=== PATIENT | male | born 1945 | race Caucasian/White ===

== ENCOUNTER 2019-04-04 18:45 | Inpatient (IN) | payer OTHER ==
[~2019-04-04] VITALS: Ht 177.8 cm; Wt 107.8 kg
[~2019-04-04 18:45] MED LIST: FLO4 PO; GLU850 PO; ZOC20 PO; [UNRECOGNIZED DRUG - OTHER] PO
[2019-04-04 18:46] VITALS: Ht 177.8 cm; Wt 107.8 kg
[2019-04-04 19:47] LABS: BASOPHIL % 0.3 % (0-2); PLATELET COUNT 194 x10^3mcL (130-400)
[2019-04-04 19:51] LABS: RED CELL DISTRIBUTION WIDTH 17.2 % (11.5-14.5)
[2019-04-04 19:52] LABS: CALCIUM 8.5 mg/dL (8.5-10.1); CARBON DIOXIDE 27.8 mmol/L (21-32); CHLORIDE SERUM 106 mmol/L (98-107); CREATININE SERUM 1.4 mg/dL (0.7-1.3); GLUCOSE SERUM 113 mg/dL (74-106); POTASSIUM SERUM 4.6 mmol/L (3.5-5.1); SODIUM SERUM 142 mmol/L (136-145)
[2019-04-04 19:57] LABS: ALBUMIN 3.4 g/dL (3.4-5.0); ALKALINE PHOSPHATASE 84 U/L (46-116); ALT/SGPT 31 U/L (16-63); AST/SGOT 18 U/L (15-37); BILIRUBIN TOTAL 0.8 mg/dL (0.20-1.00); TOTAL PROTEIN, SERUM 6.8 g/dL (6.4-8.2)
[2019-04-05] VITALS (7 sets, daily range): BP systolic 122–153; BP diastolic 55–82
[2019-04-06 05:15] VITALS: BP 118/49
[2019-04-06 07:02] LABS: PLATELET COUNT 173 x10^3mcL (130-400)
[2019-04-06 07:12] LABS: BASOPHIL % 0 % (0-2); RED CELL DISTRIBUTION WIDTH 16.8 % (11.5-14.5)
[2019-04-06 07:23] LABS: ALKALINE PHOSPHATASE 60 U/L (46-116); ALT/SGPT 24 U/L (16-63); AST/SGOT 13 U/L (15-37); BILIRUBIN TOTAL 0.5 mg/dL (0.20-1.00); CALCIUM 8.4 mg/dL (8.5-10.1); CARBON DIOXIDE 26.7 mmol/L (21-32); CHLORIDE SERUM 105 mmol/L (98-107); CREATININE SERUM 1.1 mg/dL (0.7-1.3); GLUCOSE SERUM 172 mg/dL (74-106); POTASSIUM SERUM 4.2 mmol/L (3.5-5.1); SODIUM SERUM 139 mmol/L (136-145)
[2019-04-06 08:31] VITALS: BP 117/52
[2019-04-06 12:12] VITALS: BP 117/62
[2019-04-06 16:03] VITALS: BP 146/71
[2019-04-06 20:00] VITALS: BP 111/72
[2019-04-07 05:08] VITALS: BP 114/55
[2019-04-07 07:14] LABS: BASOPHIL % 0 % (0-2); PLATELET COUNT 199 x10^3mcL (130-400); RED CELL DISTRIBUTION WIDTH 17.5 % (11.5-14.5)
[2019-04-07 07:51] LABS: CARBON DIOXIDE 29 mmol/L (21-32); CHLORIDE SERUM 103 mmol/L (98-107); POTASSIUM SERUM 3.8 mmol/L (3.5-5.1); SODIUM SERUM 142 mmol/L (136-145)
[2019-04-07 07:52] LABS: ALBUMIN 3.3 g/dL (3.4-5.0); CREATININE SERUM 1.2 mg/dL (0.7-1.3); GLUCOSE SERUM 189 mg/dL (74-106); TOTAL PROTEIN, SERUM 6.5 g/dL (6.4-8.2)
[2019-04-07 07:53] LABS: ALKALINE PHOSPHATASE 70 U/L (46-116); ALT/SGPT 24 U/L (16-63); AST/SGOT 13 U/L (15-37); BILIRUBIN TOTAL 0.5 mg/dL (0.20-1.00); CALCIUM 8.7 mg/dL (8.5-10.1)
[2019-04-07 08:13] VITALS: BP 147/85
[2019-04-07 12:38] VITALS: BP 142/88
[2019-04-07 16:38] VITALS: BP 128/68
[2019-04-07 21:26] VITALS: BP 112/58
[2019-04-08 06:01] VITALS: BP 123/63
[2019-04-08 07:27] LABS: BILIRUBIN TOTAL 0.5 mg/dL (0.20-1.00); CALCIUM 8.5 mg/dL (8.5-10.1); CARBON DIOXIDE 26.9 mmol/L (21-32); CHLORIDE SERUM 104 mmol/L (98-107); GLUCOSE SERUM 118 mg/dL (74-106); POTASSIUM SERUM 3.6 mmol/L (3.5-5.1); SODIUM SERUM 140 mmol/L (136-145); TOTAL PROTEIN, SERUM 5.9 g/dL (6.4-8.2)
[2019-04-08 07:28] LABS: ALKALINE PHOSPHATASE 56 U/L (46-116); ALT/SGPT 28 U/L (16-63); AST/SGOT 15 U/L (15-37)
[2019-04-08 08:43] VITALS: BP 127/57
[2019-04-08 13:01] VITALS: BP 135/75
[2019-04-08 14:32] VITALS: BP 135/75
[2019-04-08 17:30] VITALS: BP 104/49
[2019-04-08 22:39] VITALS: BP 129/73
[2019-04-09 06:03] VITALS: BP 100/54
[2019-04-09 08:11] LABS: CARBON DIOXIDE 29.2 mmol/L (21-32); CHLORIDE SERUM 105 mmol/L (98-107); CREATININE SERUM 0.9 mg/dL (0.7-1.3); GLUCOSE SERUM 102 mg/dL (74-106); POTASSIUM SERUM 3.8 mmol/L (3.5-5.1); SODIUM SERUM 141 mmol/L (136-145); TOTAL PROTEIN, SERUM 5.7 g/dL (6.4-8.2)
[2019-04-09 08:12] LABS: ALBUMIN 2.9 g/dL (3.4-5.0); ALKALINE PHOSPHATASE 53 U/L (46-116); ALT/SGPT 32 U/L (16-63); AST/SGOT 15 U/L (15-37); BILIRUBIN TOTAL 0.6 mg/dL (0.20-1.00); CALCIUM 8.4 mg/dL (8.5-10.1)
[2019-04-09 08:58] VITALS: BP 114/68
[2019-04-09 12:54] VITALS: BP 116/73
[2019-04-09] MEDS ORDERED: LETAIRIS5 MG PO (17:51)
[2019-04-09 17:55] VITALS: BP 108/67
[2019-04-09] MEDS ORDERED: AMLODIPINE BES2.5 M1 PO (20:44)
[2019-04-09] MEDS ORDERED: ZESTRIL5 MG PO (20:45)
[2019-04-09] MEDS ORDERED: ANORO ELLIPTA1 POW IH (20:47)
[2019-04-09 21:04] VITALS: BP 116/74
[2019-04-10 05:53] VITALS: BP 125/73
[2019-04-10 06:40] LABS: BASOPHIL % 0.1 % (0-2); PLATELET COUNT 177 x10^3mcL (130-400)
[2019-04-10 06:47] LABS: RED CELL DISTRIBUTION WIDTH 16.9 % (11.5-14.5)
[2019-04-10 07:01] LABS: CARBON DIOXIDE 30.5 mmol/L (21-32); CHLORIDE SERUM 105 mmol/L (98-107); GLUCOSE SERUM 89 mg/dL (74-106); SODIUM SERUM 143 mmol/L (136-145)
[2019-04-10 07:02] LABS: ALT/SGPT 31 U/L (16-63); AST/SGOT 14 U/L (15-37); BILIRUBIN TOTAL 0.69 mg/dL (0.20-1.00); CALCIUM 8.6 mg/dL (8.5-10.1); TOTAL PROTEIN, SERUM 5.8 g/dL (6.4-8.2)
[2019-04-10 07:03] LABS: ALKALINE PHOSPHATASE 59 U/L (46-116)
[2019-04-10 08:50] VITALS: BP 142/74
[2019-04-10 13:02] VITALS: BP 142/78
[2019-04-10 16:22] VITALS: BP 138/78
[2019-04-10 20:17] VITALS: BP 116/72
[2019-04-11 05:40] VITALS: BP 128/65
[2019-04-11 07:03] LABS: CALCIUM 8.8 mg/dL (8.5-10.1); CARBON DIOXIDE 29.7 mmol/L (21-32); CHLORIDE SERUM 104 mmol/L (98-107); CREATININE SERUM 1.1 mg/dL (0.7-1.3); GLUCOSE SERUM 104 mg/dL (74-106); POTASSIUM SERUM 4.1 mmol/L (3.5-5.1); SODIUM SERUM 142 mmol/L (136-145)
[2019-04-11 07:08] LABS: BASOPHIL % 0.2 % (0-2); PLATELET COUNT 183 x10^3mcL (130-400)
[2019-04-11 07:20] LABS: RED CELL DISTRIBUTION WIDTH 17.7 % (11.5-14.5)
[2019-04-11 08:25] VITALS: BP 128/70
[2019-04-11 10:16] VITALS: BP 128/70
[2019-04-11 12:03] VITALS: BP 110/68
[2019-04-11 16:10] VITALS: BP 132/77
[2019-04-11 20:28] VITALS: BP 128/72
[2019-04-12 05:57] VITALS: BP 121/70
[2019-04-12 08:25] VITALS: BP 140/78
[2019-04-12 12:50] VITALS: BP 114/65
[2019-04-12 17:45] VITALS: BP 133/71
[2019-04-12 21:21] VITALS: BP 136/83
[2019-04-13 05:34] VITALS: BP 119/65
[2019-04-13 09:15] VITALS: BP 127/67
[2019-04-13 12:34] VITALS: BP 127/77
== END 2019-04-13 20:30 | disposition home health service (06) | DRG 291 ==
LOC: ED 18:45 → DU 04-05 00:50
PROVIDERS: Emergency Medicine; Internal Medicine Pulmonary Disease; ADMIT Internal Medicine
DX: I11.0 Hypertensive heart disease with heart failure (principal); J96.21 Acute and chronic respiratory failure with hypoxia; J44.1 Chronic obstructive pulmonary disease with (acute) exacerbation; I50.43 Acute on chronic combined systolic (congestive) and diastolic (congestive) heart failure; E11.65 Type 2 diabetes mellitus with hyperglycemia; C61 Malignant neoplasm of prostate; I36.1 Nonrheumatic tricuspid (valve) insufficiency; I71.4 Abdominal aortic aneurysm, without rupture; I27.20 Pulmonary hypertension, unspecified; Z99.81 Dependence on supplemental oxygen; Z68.37 Body mass index [BMI] 37.0-37.9, adult; Z87.891 Personal history of nicotine dependence; Z79.84 Long term (current) use of oral hypoglycemic drugs
CPT/HCPCS: 36600; 82962; 83880; 85378; G0378; J0456; J1644; J1815; J1940; J2920; J2930; J7030; J7512; J7620; Q0092; Q9967

== ENCOUNTER 2019-04-19 15:55 | Inpatient (IN) | payer OTHER ==
[~2019-04-19] VITALS: Ht 180.3 cm; Wt 104.1 kg
[~2019-04-19 15:55] MED LIST changes: +AMLODIPINE BES2.5 M1 PO; +ANORO ELLIPTA1 POW IH; +LETAIRIS5 MG PO; +ZESTRIL5 MG PO
[2019-04-19 16:55] LABS: BASOPHIL % 0.1 % (0-2); PLATELET COUNT 131 x10^3mcL (130-400); RED CELL DISTRIBUTION WIDTH 17.4 % (11.5-14.5)
[2019-04-19 17:32] LABS: CALCIUM 8.1 mg/dL (8.5-10.1); CHLORIDE SERUM 100 mmol/L (98-107); CREATININE SERUM 2.3 mg/dL (0.7-1.3); GLUCOSE SERUM 169 mg/dL (74-106); POTASSIUM SERUM 4.4 mmol/L (3.5-5.1); SODIUM SERUM 137 mmol/L (136-145)
[2019-04-19 17:36] LABS: ERYTHROCYTE SED RATE 15 mm/hr (0-20); FREE T4 1.61 ng/dL (0.76-1.46); FREE THYROXINE INDEX 2.7 ug/dL (1.4-4.5); T4(THYROXINE) 7.4 ug/dL (4.7-13.3)
[2019-04-19 17:48] LABS: ALKALINE PHOSPHATASE 60 U/L (46-116); ALT/SGPT 29 U/L (16-63); AST/SGOT 22 U/L (15-37); BILIRUBIN TOTAL 1.1 mg/dL (0.20-1.00); C REACTIVE PROTEIN 5.3 mg/dL (<=0.9); TOTAL PROTEIN, SERUM 6.5 g/dL (6.4-8.2)
[2019-04-19 17:52] LABS: ALBUMIN 3.1 g/dL (3.4-5.0); CK-MB 0.9 ng/mL (0-3.6)
[2019-04-19 18:17] LABS: T3 TOTAL 0.71 ng/mL
[2019-04-19] MEDS ORDERED: ATORVASTATIN CA80 M1 PO (18:54)
[2019-04-19] MEDS ORDERED: ASPIR 8181 MG PO (18:55)
[2019-04-19] MEDS ORDERED: SILDENAFIL CITR20 MG PO (18:56)
[2019-04-19] MEDS ORDERED: LASIX40 MG PO (18:57)
[2019-04-19] MEDS ORDERED: METFORMIN500 M1 PO (18:59)
[2019-04-19] MEDS ORDERED: COREG6.25 M1 PO (19:00)
[2019-04-19] MEDS ORDERED: ANORO ELLIPTA1 POW PO (19:01)
[2019-04-19 20:20] VITALS: BP 92/42
[2019-04-19 21:12] VITALS: BP 92/42
[2019-04-19 23:28] VITALS: BP 117/64
[2019-04-20 02:03] LABS: UA SPECIFIC GRAVITY >=1.030 (1.005-1.035); microscopic required? YES; urine erythrocyte 2+ (NEGATIVE)
[2019-04-20 03:12] VITALS: BP 112/56
[2019-04-20 05:45] LABS: BASOPHIL % 0.2 % (0-2); PLATELET COUNT 136 x10^3mcL (130-400); RED CELL DISTRIBUTION WIDTH 17.2 % (11.5-14.5)
[2019-04-20 05:48] LABS: ALKALINE PHOSPHATASE 49 U/L (46-116); ALT/SGPT 23 U/L (16-63); AST/SGOT 19 U/L (15-37); BILIRUBIN TOTAL 0.6 mg/dL (0.20-1.00); CALCIUM 7.6 mg/dL (8.5-10.1); CARBON DIOXIDE 21.4 mmol/L (21-32); CHLORIDE SERUM 105 mmol/L (98-107); CREATININE SERUM 1.5 mg/dL (0.7-1.3); GLUCOSE SERUM 147 mg/dL (74-106); MAGNESIUM 1.3 mg/dL (1.8-2.4); POTASSIUM SERUM 3.6 mmol/L (3.5-5.1); SODIUM SERUM 139 mmol/L (136-145)
[2019-04-20 05:56] LABS: ALBUMIN 2.6 g/dL (3.4-5.0); TOTAL PROTEIN, SERUM 5.6 g/dL (6.4-8.2)
[2019-04-20 08:00] VITALS: BP 130/62
[2019-04-20 11:50] VITALS: BP 108/50
[2019-04-20 16:00] VITALS: BP 111/59
[2019-04-20 19:20] VITALS: BP 101/95
[2019-04-20 23:15] VITALS: BP 113/57
[2019-04-21 03:30] VITALS: BP 122/70
[2019-04-21 05:47] LABS: CALCIUM 8.4 mg/dL (8.5-10.1); CARBON DIOXIDE 22.7 mmol/L (21-32); CHLORIDE SERUM 106 mmol/L (98-107); GLUCOSE SERUM 168 mg/dL (74-106); POTASSIUM SERUM 3.7 mmol/L (3.5-5.1); SODIUM SERUM 138 mmol/L (136-145)
[2019-04-21 06:06] LABS: BASOPHIL % 0 % (0-2); PLATELET COUNT 129 x10^3mcL (130-400); RED CELL DISTRIBUTION WIDTH 17.2 % (11.5-14.5)
[2019-04-21 07:30] VITALS: BP 119/69
[2019-04-21 11:18] VITALS: BP 119/69
[2019-04-21 18:35] VITALS: BP 130/108
[2019-04-21 21:13] VITALS: BP 137/65
[2019-04-21 23:19] VITALS: BP 123/47
[2019-04-22 06:13] VITALS: BP 114/60
[2019-04-22 07:29] LABS: BASOPHIL % 0 % (0-2); PLATELET COUNT 135 x10^3mcL (130-400); RED CELL DISTRIBUTION WIDTH 17.3 % (11.5-14.5)
[2019-04-22] MEDS ORDERED: DELTASONE20 MG PO (08:05)
[2019-04-22] MEDS ORDERED: MORGIDOX 1X100100 MG PO (08:05)
[2019-04-22 09:01] VITALS: BP 146/82
[2019-04-22 12:08] VITALS: BP 116/54
[2019-04-22 14:00] VITALS: BP 116/54
[2019-04-22 14:21] LABS: ALKALINE PHOSPHATASE 45 U/L (46-116); ALT/SGPT 16 U/L (16-63); AST/SGOT 11 U/L (15-37); BILIRUBIN TOTAL 0.33 mg/dL (0.20-1.00); CALCIUM 8.4 mg/dL (8.5-10.1); CARBON DIOXIDE 23.7 mmol/L (21-32); CHLORIDE SERUM 105 mmol/L (98-107); CREATININE SERUM 0.9 mg/dL (0.7-1.3); GLUCOSE SERUM 152 mg/dL (74-106); POTASSIUM SERUM 3.4 mmol/L (3.5-5.1); SODIUM SERUM 138 mmol/L (136-145)
[2019-04-22 14:29] LABS: ALBUMIN 2.5 g/dL (3.4-5.0); TOTAL PROTEIN, SERUM 5.4 g/dL (6.4-8.2)
[2019-04-22 16:12] VITALS: BP 126/75
[2019-04-22 19:20] VITALS: BP 125/79; BP 146/79
[2019-04-23 04:46] VITALS: BP 119/61
[2019-04-23 06:52] LABS: CALCIUM 8.6 mg/dL (8.5-10.1); CARBON DIOXIDE 26.2 mmol/L (21-32); CHLORIDE SERUM 107 mmol/L (98-107); GLUCOSE SERUM 152 mg/dL (74-106); POTASSIUM SERUM 3.6 mmol/L (3.5-5.1); SODIUM SERUM 143 mmol/L (136-145)
[2019-04-23 12:47] VITALS: BP 127/73
[2019-04-23 17:45] VITALS: BP 122/84
[2019-04-23 20:49] VITALS: BP 140/79
[2019-04-24 05:16] VITALS: BP 105/69
[2019-04-24 07:47] LABS: BASOPHIL % 0.2 % (0-2); PLATELET COUNT 162 x10^3mcL (130-400)
[2019-04-24 07:49] LABS: RED CELL DISTRIBUTION WIDTH 17.7 % (11.5-14.5)
[2019-04-24 08:43] LABS: ALKALINE PHOSPHATASE 51 U/L (46-116); ALT/SGPT 47 U/L (16-63); AST/SGOT 28 U/L (15-37); BILIRUBIN TOTAL 0.3 mg/dL (0.20-1.00); CALCIUM 8.5 mg/dL (8.5-10.1); CARBON DIOXIDE 26.5 mmol/L (21-32); CHLORIDE SERUM 105 mmol/L (98-107); GLUCOSE SERUM 131 mg/dL (74-106); POTASSIUM SERUM 3.9 mmol/L (3.5-5.1); SODIUM SERUM 141 mmol/L (136-145)
[2019-04-24 09:03] LABS: ALBUMIN 2.8 g/dL (3.4-5.0); TOTAL PROTEIN, SERUM 5.4 g/dL (6.4-8.2)
[2019-04-24 09:07] VITALS: BP 145/77
[2019-04-24 13:30] VITALS: BP 94/40
[2019-04-24 14:10] VITALS: BP 137/85
[2019-04-24 20:00] VITALS: BP 134/67
[2019-04-24 22:00] VITALS: BP 113/73
[2019-04-25] VITALS (8 sets, daily range): BP systolic 84–145; BP diastolic 63–78; Ht 180.3 cm; Wt 104.1 kg
[2019-04-25 05:53] LABS: CARBON DIOXIDE 31.1 mmol/L (21-32); CHLORIDE SERUM 105 mmol/L (98-107); CREATININE SERUM 1.1 mg/dL (0.7-1.3); GLUCOSE SERUM 131 mg/dL (74-106); MAGNESIUM 1.6 mg/dL (1.8-2.4); POTASSIUM SERUM 3.2 mmol/L (3.5-5.1); SODIUM SERUM 145 mmol/L (136-145)
[2019-04-25 05:55] LABS: PLATELET COUNT 183 x10^3mcL (130-400); RED CELL DISTRIBUTION WIDTH 17.9 % (11.5-14.5)
[2019-04-25 06:23] LABS: MONOCYTE 5 % (0-7); SEGMENTED NEUTROPHILS 90 % (37-75)
[2019-04-25 06:24] LABS: PLATELET MORPHOLOGY PLATELETS NORMAL
[2019-04-26 05:52] VITALS: BP 122/64
[2019-04-26 08:42] VITALS: BP 135/72
[2019-04-26 10:45] LABS: CALCIUM 8.8 mg/dL (8.5-10.1); CARBON DIOXIDE 29.4 mmol/L (21-32); CHLORIDE SERUM 105 mmol/L (98-107); CREATININE SERUM 0.9 mg/dL (0.7-1.3); GLUCOSE SERUM 103 mg/dL (74-106); POTASSIUM SERUM 3.4 mmol/L (3.5-5.1); SODIUM SERUM 145 mmol/L (136-145)
[2019-04-26 12:17] VITALS: BP 114/74
[2019-04-26 16:44] VITALS: BP 111/60
[2019-04-26 20:20] VITALS: BP 127/68
[2019-04-27] VITALS (8 sets, daily range): BP systolic 107–151; BP diastolic 46–76
[2019-04-27 10:58] LABS: CALCIUM 9.2 mg/dL (8.5-10.1); CARBON DIOXIDE 30.8 mmol/L (21-32); CHLORIDE SERUM 102 mmol/L (98-107); CREATININE SERUM 1.1 mg/dL (0.7-1.3); GLUCOSE SERUM 131 mg/dL (74-106); SODIUM SERUM 143 mmol/L (136-145)
[2019-04-27 11:02] LABS: POTASSIUM SERUM 2.9 mmol/L (3.5-5.1)
[2019-04-28 05:26] VITALS: BP 117/63
[2019-04-28 08:09] VITALS: BP 140/75
[2019-04-28 10:20] LABS: CALCIUM 8.6 mg/dL (8.5-10.1); CARBON DIOXIDE 32.1 mmol/L (21-32); CHLORIDE SERUM 104 mmol/L (98-107); CREATININE SERUM 1.1 mg/dL (0.7-1.3); GLUCOSE SERUM 158 mg/dL (74-106); POTASSIUM SERUM 3.7 mmol/L (3.5-5.1); SODIUM SERUM 143 mmol/L (136-145)
[2019-04-28 11:49] VITALS: BP 136/73
[2019-04-28 15:49] VITALS: BP 127/77
[2019-04-28 20:27] VITALS: BP 127/67
[2019-04-29 04:56] VITALS: BP 121/70
[2019-04-29 07:08] LABS: PLATELET COUNT 183 x10^3mcL (130-400)
[2019-04-29 07:15] LABS: BASOPHIL % 0 % (0-2); RED CELL DISTRIBUTION WIDTH 18.7 % (11.5-14.5)
[2019-04-29 07:32] LABS: CALCIUM 8.3 mg/dL (8.5-10.1); CARBON DIOXIDE 28.4 mmol/L (21-32); CHLORIDE SERUM 102 mmol/L (98-107); GLUCOSE SERUM 118 mg/dL (74-106); POTASSIUM SERUM 3.2 mmol/L (3.5-5.1); SODIUM SERUM 141 mmol/L (136-145)
[2019-04-29 07:40] LABS: ALBUMIN 2.7 g/dL (3.4-5.0); BILIRUBIN DIRECT 0.17 mg/dL (0.0-0.2); BILIRUBIN TOTAL 0.6 mg/dL (0.20-1.00); TOTAL PROTEIN, SERUM 5.2 g/dL (6.4-8.2)
[2019-04-29 07:42] VITALS: BP 143/78
[2019-04-29] MEDS ORDERED: AMIODARONE HCL100 MG PO (08:32)
[2019-04-29] MEDS ORDERED: CARDIZEM120 MG PO (08:32)
[2019-04-29 12:14] VITALS: BP 129/68
[2019-04-29 16:22] VITALS: BP 119/65
[2019-04-29 20:57] VITALS: BP 130/71
[2019-04-30 05:24] VITALS: BP 128/65
[2019-04-30 07:38] VITALS: BP 118/65
[2019-04-30 08:53] LABS: CALCIUM 8.5 mg/dL (8.5-10.1); CARBON DIOXIDE 31.8 mmol/L (21-32); CHLORIDE SERUM 103 mmol/L (98-107); CREATININE SERUM 1.1 mg/dL (0.7-1.3); GLUCOSE SERUM 183 mg/dL (74-106); POTASSIUM SERUM 3.9 mmol/L (3.5-5.1); SODIUM SERUM 143 mmol/L (136-145)
[2019-04-30 11:49] VITALS: BP 118/64
[2019-04-30 17:21] VITALS: BP 116/68
[2019-04-30 19:33] VITALS: BP 127/70
[2019-05-01 04:25] VITALS: BP 110/57
[2019-05-01 07:34] LABS: CALCIUM 8.2 mg/dL (8.5-10.1); CARBON DIOXIDE 28.5 mmol/L (21-32); CHLORIDE SERUM 104 mmol/L (98-107); GLUCOSE SERUM 117 mg/dL (74-106); POTASSIUM SERUM 3.1 mmol/L (3.5-5.1); SODIUM SERUM 143 mmol/L (136-145)
[2019-05-01 08:30] VITALS: BP 113/56
[2019-05-01 14:03] VITALS: BP 113/65
[2019-05-01 16:14] VITALS: BP 112/60
[2019-05-01 21:25] VITALS: BP 120/65
[2019-05-02 05:45] VITALS: BP 154/64
[2019-05-02 08:30] VITALS: BP 168/71
[2019-05-02 10:19] LABS: CALCIUM 8.6 mg/dL (8.5-10.1); CARBON DIOXIDE 29.4 mmol/L (21-32); CHLORIDE SERUM 105 mmol/L (98-107); CREATININE SERUM 1.1 mg/dL (0.7-1.3); GLUCOSE SERUM 120 mg/dL (74-106); POTASSIUM SERUM 3.1 mmol/L (3.5-5.1); SODIUM SERUM 145 mmol/L (136-145)
[2019-05-02 11:59] VITALS: BP 119/69
[2019-05-02 15:02] VITALS: BP 119/69
[2019-05-02 16:26] VITALS: BP 132/67; BP 144/68
[2019-05-02 21:34] VITALS: BP 130/65
[2019-05-03 05:32] VITALS: BP 124/66
[2019-05-03 08:55] VITALS: BP 127/60
[2019-05-03 10:17] LABS: CALCIUM 8.2 mg/dL (8.5-10.1); CARBON DIOXIDE 28.8 mmol/L (21-32); CHLORIDE SERUM 105 mmol/L (98-107); CREATININE SERUM 1.3 mg/dL (0.7-1.3); GLUCOSE SERUM 199 mg/dL (74-106); POTASSIUM SERUM 3.3 mmol/L (3.5-5.1); SODIUM SERUM 146 mmol/L (136-145)
[2019-05-03 12:04] VITALS: BP 129/60
[2019-05-03] MEDS ORDERED: KLOR-CON 1010 MEQ PO (13:26)
[2019-05-03] MEDS ORDERED: NASAL MIST126 ML (13:26)
[2019-05-03 16:33] VITALS: BP 126/56
[2019-05-03 19:28] VITALS: BP 113/49
[2019-05-04 05:00] VITALS: BP 116/54
[2019-05-04 09:00] VITALS: BP 126/58
[2019-05-04 11:56] VITALS: BP 124/61
[2019-05-04 12:22] LABS: CALCIUM 8.1 mg/dL (8.5-10.1); CARBON DIOXIDE 28.7 mmol/L (21-32); CHLORIDE SERUM 107 mmol/L (98-107); POTASSIUM SERUM 3.2 mmol/L (3.5-5.1); SODIUM SERUM 145 mmol/L (136-145)
[2019-05-04 12:59] LABS: GLUCOSE SERUM 120 mg/dL (74-106)
[2019-05-04 13:00] LABS: CREATININE SERUM 1.1 mg/dL (0.7-1.3)
[2019-05-04 14:28] VITALS: BP 124/61
== END 2019-05-04 17:48 | disposition home health service (06) | DRG 871 ==
LOC: ED 15:55 → IC 18:47 → DU 04-21 17:13 → IC 04-21 17:15 → DU 04-21 17:30 → IC 04-24 14:43 → DU 04-25 19:05
PROVIDERS: Internal Medicine; Internal Medicine Nephrology; Internal Medicine Pulmonary Disease; Specialist; ADMIT Internal Medicine Pulmonary Disease
PROC: 5A09357 Assistance with Respiratory Ventilation, Less than 24 Consecutive Hours, Continuous Positive Airway Pressure (ICD-10-PCS; principal; 2019-04-19)
PROC: 5A09357 Assistance with Respiratory Ventilation, Less than 24 Consecutive Hours, Continuous Positive Airway Pressure (ICD-10-PCS; 2019-04-20)
PROC: 5A09357 Assistance with Respiratory Ventilation, Less than 24 Consecutive Hours, Continuous Positive Airway Pressure (ICD-10-PCS; 2019-04-28)
PROC: 5A09357 Assistance with Respiratory Ventilation, Less than 24 Consecutive Hours, Continuous Positive Airway Pressure (ICD-10-PCS; 2019-04-29)
PROC: 5A09357 Assistance with Respiratory Ventilation, Less than 24 Consecutive Hours, Continuous Positive Airway Pressure (ICD-10-PCS; 2019-05-04)
DX: A41.9 Sepsis, unspecified organism (principal); I21.4 Non-ST elevation (NSTEMI) myocardial infarction; J96.21 Acute and chronic respiratory failure with hypoxia; I50.41 Acute combined systolic (congestive) and diastolic (congestive) heart failure; R65.21 Severe sepsis with septic shock; J44.1 Chronic obstructive pulmonary disease with (acute) exacerbation; N17.9 Acute kidney failure, unspecified; I11.0 Hypertensive heart disease with heart failure; I48.0 Paroxysmal atrial fibrillation; E11.9 Type 2 diabetes mellitus without complications; I27.20 Pulmonary hypertension, unspecified; E86.0 Dehydration; B96.89 Other specified bacterial agents as the cause of diseases classified elsewhere; E78.5 Hyperlipidemia, unspecified; I48.91 Unspecified atrial fibrillation; E66.01 Morbid (severe) obesity due to excess calories; G47.30 Sleep apnea, unspecified; E83.42 Hypomagnesemia; I44.7 Left bundle-branch block, unspecified; Z92.3 Personal history of irradiation; Z99.81 Dependence on supplemental oxygen; Z87.891 Personal history of nicotine dependence; Z85.46 Personal history of malignant neoplasm of prostate; Z79.84 Long term (current) use of oral hypoglycemic drugs
CPT/HCPCS: 36600; 82962; 83880; 84439; 87804; 97116-GP; 99406; G0378; J0282; J0696; J1644; J1720; J1815; J1940; J1956; J2185; J3411; J3475; J3490; J7030; J7050; J7120; Q0092